=== PATIENT | female | born 1985 ===

== ENCOUNTER 2017-07-18 08:11 | Emergency (ER) | payer OTHER ==
[2017-07-18 08:24] VITALS: BP 113/67
--- NOTE | 2017-07-18 08:54 | UC ---
FLU HPI - HPI Summary HPI Summary: 3-4 DAYS OF FEVER TMAX 102, CHILLS, FATIGUE, OLMOS, NAUSEA (LAST EMESIS 2 DAYS AGO) , MYALGIAS. NO COUGH. NO FLU SHOT THIS SEASON. - History of Current Complaint Chief Complaint: UCGeneralIllness Stated Complaint: FLU SYMPTOMS Time Seen by Provider: 07/18/17 08:47 Hx Obtained From: Patient Hx Last Menstrual Period: iud Onset/Duration: Gradual Onset, Lasting Days, Still Present Severity Currently: Moderate Severity Initially: Moderate Pain Intensity: 4 Pain Scale Used: 0-10 Numeric Associated Signs & Symptoms: Positive: Fever - 102, Myalgia, Cough, Nasal Congestion, Headache, Vomiting - Allergy/Home Medications Allergies/Adverse Reactions: Allergies Allergy/AdvReac Type Severity Reaction Status Date / Time No Known Allergies Allergy Verified 07/18/17 08:24 PMH/Surg Hx/FS Hx/Imm Hx Previously Healthy: Yes - Surgical History Surgical History: None - Family History Known Family History: Positive: Hypertension - Social History Alcohol Use: Rare Substance Use Type: None Smoking Status (MU): Light Every Day Tobacco Smoker Household Exposure Type: Cigarettes Review of Systems Constitutional: Fever, Chills, Fatigue ENT: Sore Throat, Nasal Discharge Respiratory: Negative Cardiovascular: Negative Gastrointestinal: Vomiting, Nausea Musculoskeletal: Myalgia Neurological: Headache All Other Systems Reviewed And Are Negative: Yes Physical Exam Triage Information Reviewed: Yes Appearance: No Pain Distress, Well-Nourished, Ill-Appearing - MILD Vital Signs: Initial Vital Signs Temp 98.0 F 07/18/17 08:20 Pulse 73 07/18/17 08:20 Resp 16 07/18/17 08:20 BP 113/67 07/18/17 08:20 Pulse Ox 100 07/18/17 08:20 Vital Signs Reviewed: Yes Eyes: Positive: Conjunctiva Clear ENT: Positive: Hearing grossly normal, Pharyngeal erythema, TMs normal Neck: Positive: Supple, Nontender, No Lymphadenopathy Respiratory Exam: Normal Cardiovascular Exam: Normal Abdomen Description: Positive: Soft Musculoskeletal: Positive: No Edema Neurological: Positive: Alert Psychological: Positive: Age Appropriate Behavior Skin: Negative: rashes Flu Course/Dx - Course Course Of Treatment: TX PRESUMPTIVELY FOR FLU WITH TAMIFLU. ZOFRAN PRN. F/U IF NEEDED. - Differential Dx/Diagnosis Provider Diagnoses: ACUTE VIRAL SYNDROME Discharge - Discharge Plan Condition: Stable Disposition: HOME Prescriptions: Ondansetron ODT TAB* [Zofran Odt TAB*] 4 mg PO Q6H PRN #20 tab.odt PRN Reason: Nausea/Vomiting Oseltamivir CAP* [Tamiflu CAP*] 75 mg PO BID #10 cap Patient Education Materials: Viral Syndrome (ED) Forms: *Work Release Referrals: Jose Burdick MD [Primary Care Provider] - If Needed Additional Instructions: YOUR SYMPTOMS CERTAINLY COULD BE DUE TO THE FLU. WILL TREAT WITH TAMIFLU AND NAUSEA MEDICINE. FOLLOW-UP WITH YOUR PCP IF YOU ARE NOT IMPROVING EXPECTED OVER THE NEXT 1-2 WEEKS. VIRAL SYNDROME: The physician has diagnosed a viral infection. Viruses not only cause "colds," but can cause many different symptoms including generalized aching, fever, headache, cough, diarrhea, nausea, vomiting, and fatigue. The treatment, for the most part, is simply relief of symptoms. This means that antibiotics are usually not given. Rest, fluids, pain medications and, occasionally, medication for the specific symptoms that are most bothersome will be prescribed. Go to the ED if you develop any new or unusual symptoms such as severe headache, stiff neck, high fever, chest pain, productive cough, or shortness of breath. You should be rechecked if you don't see marked improvement within 10 to 14 days.
== END 2017-07-18 09:00 | disposition home or self-care (01) ==
LOC: UCEAST 08:11
DX: B34.9 Viral infection, unspecified (principal); F17.210 Nicotine dependence, cigarettes, uncomplicated
CPT/HCPCS: 99212; G0463

== ENCOUNTER 2017-08-28 12:06 | Emergency (ER) | payer OTHER ==
[2017-08-28 12:53] VITALS: BP 123/84
--- NOTE | 2017-08-28 13:20 | UC ---
Shoulder Pain HPI - HPI Summary HPI Summary: Pt presents with left shoulder pain that began last week. She tells me that she had a similar pain about 2 years ago and was told to rest and due physical therapy for her shoulder - eventually improved. Her pain began again last week and seems to be radiating down her left arm into her 5th and 4th digits. 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 Denies specific injury. Has not been taking anything for her pain. - History of Current Complaint Hx Obtained From: Patient Hx Last Menstrual Period: has IUD ?: No Onset/Duration: Gradual Onset Timing: Constant Severity Initially: Mild Severity Currently: Mild Pain Intensity: 2 Character: Aching, Stiffness Aggravating Factor(s): Movement, Lifting Alleviating Factor(s): Rest <Markie Napoles - Last Filed: 08/28/17 15:46> <Deedee Menezes - Last Filed: 08/28/17 16:16> - History of Current Complaint Chief Complaint: UCUpperExtremity Stated Complaint: SHOULDER PAIN Time Seen by Provider: 08/28/17 13:19 - Allergies/Home Medications Allergies/Adverse Reactions: Allergies Allergy/AdvReac Type Severity Reaction Status Date / Time No Known Allergies Allergy Verified 08/28/17 12:47 Home Medications: Home Medications NK [No Home Medications Reported] 08/28/17 [History Confirmed 08/28/17] PMH/Surg Hx/FS Hx/Imm Hx Previously Healthy: Yes - Surgical History Surgical History: None - Family History Known Family History: Positive: Unknown, Hypertension - Social History Occupation: Employed Full-time Lives: With Family Alcohol Use: Weekly Substance Use Type: None Smoking Status (MU): Light Every Day Tobacco Smoker Amount Used/How Often: 6-7 PER DAY Household Exposure Type: Cigarettes <Markie Napoles - Last Filed: 08/28/17 15:46> Review of Systems Constitutional: Negative Skin: Negative Respiratory: Negative Cardiovascular: Negative Neurovascular: Negative Musculoskeletal: Decreased ROM - Left shoulder, Other: - Pain left shoulder Neurological: Negative Psychological: Negative All Other Systems Reviewed And Are Negative: Yes <Markie Napoles - Last Filed: 08/28/17 15:46> Physical Exam - Summary Physical Exam Summary: GENERAL: NAD. WDWN. No pain distress. SKIN: No rashes, sores, ulcers, masses, lesions. NECK: Supple. Nontender. No lymphadenopathy. CHEST: CTAB. No r/r/w. No accessory muscle use. Breathing comfortably and in no distress. CV: RRR. Without m/r/g. Pulses intact radial and ulnar. MSK: TTP anterior left shoulder and pec major. FROM. Strength 5/5 including registered nurse step down strength. Positive apprehension, apley's, song, and neer. No edema or obvious bony deformities. NEURO: Alert. Sensations intact C4-T1 left UE. PSYCH: Age appropriate behavior. Triage Information Reviewed: Yes Vital Signs: Initial Vital Signs Temp 99.2 F 08/28/17 12:46 Pulse 65 08/28/17 12:46 Resp 18 08/28/17 12:46 BP 123/84 08/28/17 12:46 Pulse Ox 100 08/28/17 12:46 <Markie Napoles - Last Filed: 08/28/17 15:46> Vital Signs: Initial Vital Signs Temp 99.2 F 08/28/17 12:46 Pulse 65 08/28/17 12:46 Resp 18 08/28/17 12:46 BP 123/84 08/28/17 12:46 Pulse Ox 100 08/28/17 12:46 <Deedee Menezes - Last Filed: 08/28/17 16:16> Shoulder Course/Dx - Course Course Of Treatment: XR: IMPRESSION: NEGATIVE EXAM. Suspect rotator cuff tendinitis vs strain. Rest, heat, NSAIDs, and physical therapy. If symptoms persist - follow up with Orthopedics - Differential Dx/Diagnosis Provider Diagnoses: Left rotator cuff tendinitis <Markie Napoles - Last Filed: 08/28/17 15:46> Discharge <Markie Napoles - Last Filed: 08/28/17 15:46> <Deedee Menezes - Last Filed: 08/28/17 16:16> - Discharge Plan Condition: Stable Disposition: HOME Patient Education Materials: Rotator Cuff Tendinitis (ED) Forms: *Work Release Referrals: Jose Burdick MD [Primary Care Provider] - Additional Instructions: If you develop a fever, shortness of breath, chest pain, new or worsening symptoms - please call your PCP or go to the ED. 1) Rest and apply heat to your shoulder as needed for pain 2) May take 600-800mg ibuprofen every 6-8 hours as needed for pain 3) Please try to carry less weight while working and follow up with physical therapy to help strengthen your shoulder. Attestation Statement User Type: Provider - I was available for consult. This patient was seen by the NGUYỄN. The patient was not presented to, seen by, or examined by me. Naveed <Deedee Menezes - Last Filed: 08/28/17 16:16>
--- NOTE | 2017-08-28 13:40 | RAD ---
INDICATION: Left shoulder injury. TECHNIQUE: 4 views of the left shoulder were obtained. FINDINGS: The bones are in normal alignment. No fracture is seen. Joint spaces appear maintained. IMPRESSION: NEGATIVE EXAM.
== END 2017-08-28 14:19 | disposition home or self-care (01) ==
LOC: UCEAST 12:06
DX: M75.92 Shoulder lesion, unspecified, left shoulder (principal); F17.210 Nicotine dependence, cigarettes, uncomplicated
CPT/HCPCS: 99211; G0463

== ENCOUNTER 2017-12-03 12:52 | Emergency (ER) | payer OTHER ==
[2017-12-03] MEDS ORDERED: Ibuprofen TAB* 800 MG PO ONE (13:39)
--- NOTE | 2017-12-03 14:12 | RAD ---
HISTORY: blunt trauma (rock) to Lt dorsal foot 1ST MTP COMPARISONS: None VIEWS: 3, Frontal, lateral, and oblique views of the left foot. Evaluation of the second digit is limited by metallic jewelry. FINDINGS: BONE DENSITY: Normal. BONES: There is no displaced fracture. JOINTS: There is no arthropathy. ALIGNMENT: There is no dislocation. SOFT TISSUES: Unremarkable. OTHER FINDINGS: None. IMPRESSION: NO ACUTE OSSEOUS INJURY. IF SYMPTOMS PERSIST, RECOMMEND REPEAT IMAGING.
[2017-12-03] MEDS ORDERED: Bacitracin OINTMENT* 0.5% 0.5 oz TUBE TOPICAL ONE (14:17)
--- NOTE | 2017-12-03 14:40 | ED ---
Lower Extremity - HPI Summary HPI Summary: Pt presets w/ injury to Lt foot prior to arrival. A child that was playing with her children kicked a rock down a hill and it struck the dorsum of her foot, creating pain and a small laceration. Bleeding controlled. She denies numbness, tingling, weakness but has pain w weight bearing. Imms are UTD. No cleaning or pain medication prior to arrival. - History of Current Complaint Chief Complaint: EDExtremityLower Stated Complaint: LT FOOT INJURY Time Seen by Provider: 12/03/17 13:29 Hx Obtained From: Patient Hx Last Menstrual Period: has IUD Pain Intensity: 10 - Allergies/Home Medications Allergies/Adverse Reactions: Allergies Allergy/AdvReac Type Severity Reaction Status Date / Time No Known Allergies Allergy Verified 12/03/17 13:00 PMH/Surg Hx/FS Hx/Imm Hx Previously Healthy: Yes Endocrine/Hematology History: Denies: Hx Anticoagulant Therapy, Hx Blood Disorders, Hx Diabetes, Hx Thyroid Disease, Autoimmune Disease Cardiovascular History: Denies: Hx Hypertension Respiratory History: Denies: Hx Asthma, Hx Chronic Obstructive Pulmonary Disease (COPD) GI History: Denies: Hx Ulcer Sensory History: Reports: Hx Contacts or Glasses - GLASSES Opthamlomology History: Reports: Hx Contacts or Glasses - GLASSES - Immunization History Immunizations Up to Date: Yes Infectious Disease History: No Infectious Disease History: Denies: Hx Clostridium Difficile, Hx Hepatitis, Hx Human Immunodeficiency Virus (HIV), Hx of Known/Suspected MRSA, Hx Shingles, Hx Tuberculosis, Hx Known/ Suspected VRE, Hx Known/Suspected VRSA, History Other Infectious Disease, Traveled Outside the [place] in Last 30 Days - Family History Known Family History: Positive: Hypertension - Social History Occupation: Employed Full-time - head waiter/waitress Lives: With Family Alcohol Use: Weekly Hx Substance Use: No Substance Use Type: Reports: None Hx Tobacco Use: Yes Smoking Status (MU): Light Every Day Tobacco Smoker Amount Used/How Often: 6-7 PER DAY Review of Systems Constitutional: Negative Positive: Arthralgia, Decreased ROM - d/t pain. Negative: Edema Skin: Other - lac Neurological: Negative Positive: Anxious All Other Systems Reviewed And Are Negative: Yes Physical Exam Triage Information Reviewed: Yes Vital Signs On Initial Exam: Initial Vitals Temp Pulse Resp BP Pulse Ox 98.6 F 136 20 128/95 100 12/03/17 12:54 12/03/17 12:54 12/03/17 12:54 12/03/17 12:54 12/03/17 12:54 Vital Signs Reviewed: Yes Appearance: Positive: Well-Appearing, Well-Nourished, Pain Distress - mild to moderate Skin: Positive: Warm, Skin Color Reflects Adequate Perfusion - 0.5cm laceration over dorsum of Lt footjust proximal to 1st MTP joint - no FB, no active bleeding , no tendon exposed Head/Face: Positive: Normal Head/Face Inspection ENT: Positive: Hearing grossly normal Respiratory/Lung Sounds: Positive: Breath Sounds Present Cardiovascular: Positive: Pulses are Symmetrical in both Upper and Lower Extremities Musculoskeletal: Positive: Limited @ - d/t pain - no gross deformity Neurological: Positive: Normal, Sensory/Motor Intact, Alert, Oriented to Person Place, Time, CN Intact II-III Psychiatric: Positive: Anxious Procedures - Laceration/Wound Repair 3 Location: lower extremity - Lt foot Description: Linear Anesthesia: Local, 1.0%, Lido Length, Depth and Shape: 0.5cm x 3mm Betadine Prep?: Yes Irrigated w/ Saline (ccs): 250 Laceration/Wound Explored: clean Closure: Single Layer Suture Type: Other - ethilon 5-0 Number of Sutures: 3 Layer Closure?: No Sterile Dressing Applied?: Yes - triple anbx ointment + gauze + ARYA wrap - hemodynamically stable Diagnostics - Vital Signs Vital Signs Temp Pulse Resp BP Pulse Ox 12/03/17 12:54 98.6 F 136 20 128/95 100 - Laboratory Lab Statement: Any lab studies that have been ordered have been reviewed, and results considered in the medical decision making process. Lower Extremity Course/Dx - Course Course Of Treatment: XR: no fx, no dislocation, no FB - Diagnoses Provider Diagnoses: Contusion of left foot, Laceration of left foot Discharge - Sign-Out/Discharge Documenting (check all that apply): Discharge/Admit/Transfer - Discharge Plan Condition: Stable Disposition: HOME Patient Education Materials: Care For Your Stitches (ED), Crutch Instructions ( ED), Laceration (ED), Contusion in Adults (ED) Forms: *Work Release Referrals: Luis Pradhan MD [Primary Care Provider] - Additional Instructions: Keep Dressing clean and dry and in place for the next 48 hours. After that time , you may remove dressing, gently wash wound with soap and water, rinse well and pat dry with clean cloth. Reapply triple antibiotic ointment and clean gauze dressing. Continue this daily until sutures are removed. Call your PCP to schedule wound recheck and suture removal in 10-14 days. * If you develop redness, swelling, streaking, purulent drainage, fevers or chills, seek medical attention sooner or return to the emergency department. Rest, ice and elevate for pain/swelling. Use crutches until weight bearing is tolerable. - Billing Disposition and Condition Condition: STABLE Disposition: Home
[2017-12-03 15:32] VITALS: BP 118/88
== END 2017-12-03 15:31 | disposition home or self-care (01) ==
LOC: ED 12:52
DX: S91.312A Laceration without foreign body, left foot, initial encounter (principal); W20.8XXA Other cause of strike by thrown, projected or falling object, initial encounter; Y92.828 Other wilderness area as the place of occurrence of the external cause; F17.200 Nicotine dependence, unspecified, uncomplicated
CPT/HCPCS: 12001; 99282; A9270-GY